=== PATIENT | male | born 1960 | race Caucasian/White ===

== ENCOUNTER → 2020-06-16 | Outpatient (CLI) | payer OTHER ==
[2020-06-16 13:50] LABS: Creatinine, Urine Random 55.6 mg/dL (27.00-270.00)
[2020-06-16 13:53] LABS: Microalb/Creat Ratio UR, Rand 42.626 mg/g (0.000-30.000); Microalbumin, Random Urine 23.7 mg/L (0.000-20.000)
== END | disposition home or self-care (01) ==
LOC: OLS 12:30 → LAB SHORT 12:30
PROVIDERS: Student in an Organized Health Care Education/Training Program
DX: R80.9 Proteinuria, unspecified (principal)
CPT/HCPCS: 82043; 82570